=== PATIENT | male | born 2000 | race Caucasian/White ===

== ENCOUNTER → 2021-03-24 | Outpatient (CLI) | payer BC ==
[~2021-03-24] VITALS: Ht 187.9 cm; Wt 81.8 kg
[~2021-03-24] MED LIST: ACETAMINOPHEN 500 MG TAB (TYLENOL) PO PRN; CASIRIVIMAB/IMDEVIMAB 1,200 MG in NS (IVPB) 250 ML IV ONE; EPINEPHrine INJECTION 1 MG/ML AMP IM PRN; ONDANSETRON 4 MG/2 ML (SDV) Z0FRAN IV PRN; diphenhydrAMINE 50 MG/ML INJ (BENADRYL) IV PRN
[2021-03-24 12:41] VITALS: BP 123/66
[2021-03-24 14:16] VITALS: BP 105/56
== END ==
LOC: INFUSION 12:35
PROVIDERS: ATTEND Internal Medicine
DX: Z23 Encounter for immunization (principal); U07.1 COVID-19